=== PATIENT | female | born 1995 | race Hispanic/Latino ===

== ENCOUNTER 2025-01-08 10:42 | Day surgery (SDC) | payer OTHER, SELFPAY ==
[2024-12-26 12:14] VITALS: BMI 27.9
[2025-01-08] VITALS (7 sets, daily range): BP systolic 96–119; BP diastolic 60–82; PULSE 76–87; RESP 8–16; TEMP 36.2; O2SAT 95–98; BMI 27.9
--- NOTE | 2025-01-08 | PATH_ITS ---
[facility] Accession Number: [id number] No. of containers..01 Tissue . 01 Material submitted: . BARTHOLINS GLAND - BARTHOLINS GLAND . 01 Diagnosis: BARTHOLIN GLAND, CYST, EXCISION: Fragments of Bartholin's gland cyst, inflamed and ruptured with reactive changes. Overlying squamous mucosa without significant pathologic abnormalities. Negative for dysplasia or malignancy. V 01/20/2025 1449 Local . 01 Electronically signed: . Kevin Jenkins MD, Pathologist NPI- [id number] . 01 Gross description: . Received in formalin with two identifiers and Bartholin gland, are two irregular, bowser to brown, soft tissue fragments with cautery artifact and no skin grossly identified. The fragments measure 3.5 x 2.5 x 0.9 cm and 2.1 x 1.3 x 0.9 cm. The fragments are differentially inked. Sectioning reveals a bowser to red-brown, soft cut surface. Handling Tech sections are submitted in A1-A2. ([id number]) /MRV 01/13/2025 1533 Local . 01 Pathologist provided ICD-10: N75.0 . 01 CPT . 435024 Specimen Comment: A courtesy copy of this report has been sent to [phone] Performed at: [address] [facility] [address], [place], [place] [id number] MD Erickson Parks MD Phone: [phone]
[2025-01-08] MEDS: FAMOTIDINE 20 MG/2 ML VIAL IV (11:10)
[2025-01-08] MEDS: LACTATED RINGERS 1,000 ML 21 ML IV (11:10)
[2025-01-08] MEDS: ACETAMINOPHEN IV 1,000 MG/100 ML VIAL 400 MG IV (11:10)
[2025-01-08] MEDS: SCOPOLAMINE 1 PATCH TOP (11:42)
--- NOTE | 2025-01-08 11:50 | PM.GYNHP.1 ---
History of Present Illness History of Present Illness Narrative: Megan Prince is a 29 year old female 1 para 1 with a right Bartholin's gland cyst. Patient has had several marsupialization of the gland and the cyst keeps recurring. [facility] Medical History (Updated 04/24/24 @ 08:48 by Nona Calderon MD) Bartholin's gland cyst Social History household members: spouse Smoking Status: Never smoker alcohol intake: current Meds Home Medications and Allergies Home Medications ?Medication ?Instructions ?Recorded ?Confirmed ?Type norethindrone (contraceptive) 0.35 0.35 mg PO DAILY 04/24/24 01/08/25 History mg tablet Allergies Allergy/AdvReac Type Severity Reaction Status Date / Time No Known Drug Allergies Allergy Verified 01/08/25 10:49 Exam Vital Signs (past 8 hours): - 01/08/25 11:01 Temperature 97.2 F L Pulse Rate 85 Respiratory Rate 16 Blood Pressure 119/82 Pulse Oximetry 98 Oxygen Delivery Method Room Air Oxygen Delivery Method Room Air Narrative Exam Narrative: HEENT: No thyromegaly, no anterior cervical or supraclavicular lymphadenopathy. Lungs:Clear to auscultation bilaterally, no wheezes. Cardiovascular: Regular rate and rhythm, no murmurs, rubs, or gallops. Abdomen: No scars. No hepatosplenomegaly. No masses palpable. External genitalia: 3 cm right Bartholin's gland cyst Vagina: Normal Cervix: Normal Bimanual exam: 6 Week size uterus. Mobile. Extremities: No edema Assessment & Plan Assessment & Plan narrative: Assessment: 29-year-old 1 para 1 with a recurrent right Bartholin's gland cyst Status post several marsupializations Plan: Excision right Bartholin's gland cyst The risks, benefits, and alternatives to the procedure were explained to the patient. The risks including bleeding and infection. She understands these risks and agrees to proceed. A full par Q was held and consent form was signed. Time-Based Coding :: [TOTAL MINUTES] spent with patient and on the chart (including review of chart, obtaining history, exam, reviewing outside data, placing orders, documenting exam and treatment plan, and counseling patient) on [DATE].
--- NOTE | 2025-01-08 11:52 | PM.PREOP ---
Pre-operative Note Interval Note History & Physical reviewed/Exam performed by Physician: Yes Changes to H&P: No H&P completed within 30 days and has changed as indicated here:: 01/08/25
[2025-01-08] MEDS: CEFAZOLIN 2 GM/100 ML PREMIX 100 ML IV (11:58)
--- NOTE | 2025-01-08 12:15 | SUR.OPER ---
Lithotomy on padded OR bed, head on pillow, arms secured on padded arm boards at <90 degrees abduction. Legs secured in padded yellow fins stirrups. All pressure points padded.
[2025-01-08] MEDS: BUPIVACAINE 0.5% W/ EPI (PF) 30 ML VIAL INJ (12:31)
--- NOTE | 2025-01-08 13:37 | PM.GYNOP.1 ---
Operative Date/Time/Diagnoses Date of procedure: 01/08/25 Time of procedure: 13:37 Pre-op diagnosis: Recurrent right Bartholin's gland cyst Post-op diagnosis: other (Right Bartholin's gland abscess) Procedure & Clinicians Procedure: Procedures Operation Date: 01/08/25 12:00 Actual Procedure Side Surgeon p Excision of Right Bartholin gland Right Tonja Churchill MD Indications: 29-year-old with recurrent right Bartholin's gland cyst and abscesses. She has had multiple marsupialization of the right Bartholin's gland. Surgeon: Tonja Churchill Anesthesia Type: General (LMA) and Local Operative Notes Findings: After informed consent was obtained, the patient was taken to the operating room where she was placed in the dorsal supine position. After adequate LMA general anesthesia was achieved, she was placed in the dorsal lithotomy position, and prepped and draped in the usual sterile fashion. A time-out was performed. 10 cc of 0.5% Marcaine with epinephrine were injected below the skin. Two Allis clamps were placed 2 cm apart. An incision was made between the 2 Allis clamps over the Bartholin's gland/cyst. Allis clamps were moved to the edges. The cyst was visible. Using a hemostat and Metzenbaum scissors the cyst was excised. At 1 point the cyst ruptured and there was some yellowish fluid without odor. Cultures were taken of the fluid. Irrigation with 500 cc of sterile saline was performed. The cyst wall was grasped with Allis clamps and carefully dissected out using the Bovie and Metzenbaum scissors. There was a large defect. Surgeon and assistants gloves were changed and new irrigation equipment was brought in. The area was irrigated with another L of saline. Deep sutures were placed with 2-0 Vicryl to close the space. A second layer of mid sutures was placed with 2-0 Vicryl with simple interrupted sutures. A third layer of sutures was placed underneath the skin to reapproximate. The actual skin was closed with simple interrupted sutures with 3-0 chromic. The most posterior skin suture caused a small amount of bleeding. Pressure was held for 5 minutes for hemostasis. Sponge, lap, and instrument counts were correct x2. The patient tolerated the procedure well, and was taken to PACU in stable condition. Closure Type: primary Specimen(s): other (Right Bartholin's gland, cultures of the right Bartholin's gland cyst) Applied: none
[2025-01-08] MEDS: OXYCODONE IR 5 MG TABLET PO (13:46)
== END 2025-01-08 14:32 | disposition home or self-care (01) ==
PROVIDERS: PCP Family Medicine; Referring Provider Obstetrics & Gynecology; Visit Provider Obstetrics & Gynecology
PROC: (CPT 56440; principal; 2025-01-08 12:00)
DX: N75.0 Cyst of Bartholin's gland (principal)
CPT/HCPCS: 56740; 87070; 87075; 87205; J0131; J0690; J1100; J1885; J2250; J2405; J2704; J3010